=== PATIENT | female | born 1960 | race Native Hawaiian/Other Pacific Islander ===

== ENCOUNTER 2018-04-14 15:48 | Emergency (ER) | payer OTHER ==
[~2018-04-14] VITALS: Ht 152.4 cm; Wt 44.0 kg
[~2018-04-14 15:48] MED LIST: ASPIR-8181 MG PO; PLAVIX75 MG PO
[2018-04-14 15:57] VITALS: TEMP 99.1
[2018-04-14] MEDS ORDERED: LISI5TAB10 PO (16:13)
[2018-04-14 17:14] VITALS: BP 166/82
== END 2018-04-14 17:18 | disposition home or self-care (01) ==
LOC: ED 15:48
DX: S80.01XA Contusion of right knee, initial encounter (principal); W01.0XXA Fall on same level from slipping, tripping and stumbling without subsequent striking against object, initial encounter; Y92.098 Other place in other non-institutional residence as the place of occurrence of the external cause
CPT/HCPCS: 99282; L1830

== ENCOUNTER 2021-09-03 23:45 | Emergency (ER) | payer OTHER ==
[~2021-09-03] VITALS: Ht 152.4 cm; Wt 46.3 kg
[~2021-09-03 23:45] MED LIST changes: +LISI5TAB10 PO
[2021-09-03 23:50] VITALS: TEMP 98.2
[2021-09-04 01:45] VITALS: BP 132/79
== END 2021-09-04 01:45 | disposition home or self-care (01) ==
LOC: ED 23:45
PROC: 2W3DX1Z Immobilization of Left Lower Arm using Splint (ICD-10-PCS; principal; 2021-09-03)
DX: S63.592A Other specified sprain of left wrist, initial encounter (principal); S63.8X2A Sprain of other part of left wrist and hand, initial encounter; S52.592A Other fractures of lower end of left radius, initial encounter for closed fracture; W10.2XXA Fall (on)(from) incline, initial encounter; Y92.89 Other specified places as the place of occurrence of the external cause
CPT/HCPCS: 96372; 99283; J1885